=== PATIENT | female | born 1955 | race Caucasian/White ===

== ENCOUNTER 2020-01-05 18:32 | Emergency (ER) | payer MEDICARE, OTHER ==
[~2020-01-05] VITALS: Ht 170.2 cm; Wt 65.0 kg
[~2020-01-05 18:32] MED LIST: NO HOME MEDICATIONS; PROTONIX40 MG PO
[2020-01-05 18:42] VITALS: BP 124/56; TEMP 98.3
[2020-01-05 20:12] VITALS: PULSE 82
== END 2020-01-05 20:13 | disposition home or self-care (01) ==
LOC: COL.ER 18:32
DX: M25.531 Pain in right wrist (principal); W11.XXXA Fall on and from ladder, initial encounter

== ENCOUNTER → 2020-02-24 | Outpatient (CLI) | payer MEDICARE, OTHER | LOC: MC.RAD 14:30 | DX: Z12.31 Encounter for screening mammogram for malignant neoplasm of breast (principal); Z98.82 Breast implant status ==

== ENCOUNTER → 2022-05-01 | Outpatient (CLI) | payer MEDICARE, OTHER | LOC: MC.RAD 10:30 | DX: Z12.31 Encounter for screening mammogram for malignant neoplasm of breast (principal) ==